=== PATIENT | male | born 1985 | race Caucasian/White ===

== ENCOUNTER 2018-08-17 02:28 | Emergency (ER) | payer OTHER, BC ==
[~2018-08-17] VITALS: Ht 170.2 cm; Wt 65.9 kg
[2018-08-17 02:33] VITALS: Ht 170.2 cm; Wt 65.9 kg
--- NOTE | 2018-08-17 02:38 | ERD ---
ER Documentation Chief Complaint Chief Complaint Fentanyl overdose HPI The patient is a 33-year-old male, was brought into the emergency department because he accidentally overdosed on fentanyl. His friend called 911. EMS was able to administer Narcan 4 mg IV with spontaneous response. He is awake, alert upon arrival to emergency department but very uncooperative and refused any blood test. He denies suicidal/homicidal ideation, simply accidentally overdose on the fentanyl. He smokes, denies drinking. Accu check by EMS was 266 Past medical/surgical history: None ROS All systems reviewed and are negative except as per history of present illness. Medications Home Meds Active Scripts Naloxone HCl nasal spray (Narcan 4 mg/0.1 mL nasal) 4 Mg Bigelow, 4 MG NS .Q2-3MIN for OPIOID OVERDOSE, #2 SPRAY 0 Refills Bigelow 0.1 mL into one nostril. Repeat with second device into other nostril after 2-3 minutes if no or minimal response Prov:EDUAR HAN MD 08/17/18 Allergies Allergies: Coded Allergies: No Known Allergy (Unverified , 08/17/18) Physical Exam Vitals Vital Signs Date Temp Pulse Resp B/P (MAP) Pulse Ox O2 O2 Flow FiO2 Time Delivery Rate 08/17/18 115 16 139/115 100 Nasal 02:50 (123) Cannula 08/17/18 135 25 138/100 100 02:33 (113) Physical Exam Const: No acute distress. Head: Atraumatic. Eyes: Normal Conjunctiva. ENT: Normal External Ears, Nose and Mouth. Neck: Full range of motion. No meningismus. Resp: Clear to auscultation bilaterally. Cardio: Regular rate and rhythm. Abd: Soft, non distended, normal bowel sounds, non tender. Skin: No petechiae or rashes. Back: No midline or flank tenderness. Ext: No cyanosis, or edema. Neur: Awake and alert. No focal deficit Psych: Normal Mood and Affect. Procedures/[place] [id number] Radiology Main Line: [phone] DIAGNOSTIC IMAGING REPORT Patient: TATYANA DUNN : 1985 Age: 33 Sex: M MR #: [id number] DOS: 08/17/18 0254 Ordering MD: EDUAR HAN MD Location: E/R Room/Bed: PROCEDURE: XR Chest. CLINICAL INDICATION: Dyspnea. TECHNIQUE: Single frontal view of the chest. COMPARISON: None. FINDINGS: The cardiomediastinal silhouette is within normal limits. Mild interstitial markings in the bilateral lungs suggest centrolobular emphysema. The lungs are clear. No signs of pleural fluid or pneumothorax are seen. Question age indeterminate fracture of the distal left clavicle, and cannot exclude an acute or recent fracture. Otherwise, the osseous structures and soft tissues are unremarkable. IMPRESSION: 1. Question bilateral centrolobular emphysema. 2. Otherwise, no evidence for active cardiopulmonary disease. Number 3. Question age indeterminate fracture at the distal left clavicle, and cannot exclude an acute or recent fracture. RPTAT: [facility] Physician Efrain Date Time Electronically viewed and signed by Physician Efrain on 08/17/2018 04:08 RS/ CC: EDUAR HAN MD [id number] MEDICAL MAKING DECISION: The patient is a 33-year-old male, presenting with acute accidental overdose on fentanyl, responding to Narcan. He is awake alert and resting comfortably. He denies any blood test, I advised him that he need to follow-up with his do ctor immediately to rule out diabetes because of high glucose. He was explained the risks, benefits, alternatives. Risks include but not limited to and permanent disability Departure Diagnosis: Primary Impression: Accidental fentanyl overdose Additional Impression: Hyperglycemia Condition: Stable Comments The patient's blood pressure was elevated (>120/80) but appears stable without evidence of hypertension emergency or urgency. The patient was counseled about the risks of hypertension and urged to pursue outpatient monitoring and therapy within a week with their primary care physician. I discussed the findings with the patient. I advised the patient to follow-up with the primary physician in about 2-3 days, sooner if needed and return if any concern. He will be observed here for 4 hours and will be discharged when he is able to ambulate independently and tolerate p.o. well Disclaimer: Inadvertent spelling and grammatical errors are likely due to EHR/dictation software use and do not reflect on the overall quality of patient care. Also, please note that the electronic time recorded on this note does not necessarily reflect the actual time of the patient encounter. EDUAR HAN MD August 17, 2018 02:38
[2018-08-17] MEDS ORDERED: NALO4SPR NS (04:09)
[2018-08-17 08:00] VITALS: BP 103/60; PULSE 84; RESP 17
== END 2018-08-17 09:00 | disposition home or self-care (01) ==
LOC: EDBD 02:28 → E/R 02:28
DX: T40.4X1A Poisoning by other synthetic narcotics, accidental (unintentional), initial encounter (principal); R73.9 Hyperglycemia, unspecified; R06.00 Dyspnea, unspecified
CPT/HCPCS: 71045